=== PATIENT | female | born 1965 | race Caucasian/White ===

== ENCOUNTER → 2016-08-30 | Outpatient (CLI) | payer BC ==
--- NOTE | 2016-08-31 07:43 | MR ---
MRI of the brain with and without contrast HISTORY: Headaches. TECHNIQUE: T1-weighted sagittal, T2, FLAIR, and diffusion axial, postcontrast T1 axial and coronal vi ews of the brain are submitted. CONTRAST: 15 mL of MultiHance FINDINGS: There is no evidence of acute ischemia. The ventricles, basal cisterns, and sulci overlying the co nvexities are consistent with the patient's age. There is no mass effect or enhancing mass. Craniocervical junction maintained. Pituitary gland somewhat prominent in size. No evidence of cerebe llopontine angle mass. Changes of chronic mild sinusitis noted. WHITE MATTER: Within the right frontal white matter there is an area of mixed signal measuring 1.3 x 1.1 cm contain ing low and high signal suggestive of a cavernous angioma. A vascular more malformation is felt to b e the most likely etiology differential diagnosis also including a remote hemorrhage or neoplasm. No enhancement. Report called to the patient's referring clinician. IMPRESSION: 1. Within the right frontal white matter there is an area of mixed signal containing low and high sig nal suggestive of a cavernous angioma. A vascular malformation is felt to be the most likely etiolog y with the differential diagnosis also including a remote hemorrhage or neoplasm.
== END ==
LOC: RADMRIMAIN 20:03
PROVIDERS: ATTEND Physician Assistant Medical
DX: R51 Headache (principal); G43.009 Migraine without aura, not intractable, without status migrainosus
CPT/HCPCS: 70553; A9577

== ENCOUNTER 2016-09-15 14:19 | Emergency (ER) | payer BC ==
[2016-09-15] MEDS ORDERED: SODIUM CHLORIDE 0.9% 1,000 ML IV STA (14:57)
[2016-09-15] MEDS ORDERED: SODIUM CHLORIDE 0.9% 500 ML IV STA (14:57)
[2016-09-15] MEDS ORDERED: LORazepam 1 MG TAB PO STA (14:58)
[2016-09-15 15:17] LABS: Basophils # (A) 0.1 k/uL (0-0.2); Basophils % (A) 1 %; CH 27.5; CHCM 32.2; Eosinophils # (A) 0.1 k/uL (0-0.7); Eosinophils % (A) 2 %; HCT 39.1 % (34.0-46.0); HDW 2.69; HGB 12.2 gm/dL (11.4-16.0); Hypochromasia Slight; Luc # (Auto) 0.15; Luc % (Auto) 3; Lymphocytes % (A) 18 %; MCH 26.7 pg (25.0-35.0); MCHC 31.3 g/dL (31.0-37.0); MCV 85.5 fL (80.0-100.0); Monocytes # (A) 0.3 k/uL (0-1.0); Monocytes % (A) 5 %; Neutrophils # (A) 3.9 k/uL (1.3-7.7); Neutrophils % (A) 72 %; RBC 4.57 m/uL (3.80-5.40); RDW 13.8 % (11.5-15.5); WBC 5.5 k/uL (3.8-10.6); WBC (Perox) 5.79
[2016-09-15 15:19] LABS: ALT 21 U/L (9-52); AST 27 U/L (14-36); Alkaline Phosphatase 89 U/L (38-126); Anion Gap 14 mmol/L; Blood Urea Nitrogen 20 mg/dL (7-17); Calcium 9.8 mg/dL (8.4-10.2); Carbon Dioxide 25 mmol/L (22-30); Chloride 101 mmol/L (98-107); Glucose 91 mg/dL (74-99); Magnesium 1.9 mg/dL (1.6-2.3); Non-African American GFR(MDRD) >60 (>60 ml/min/1.73 sqM); Sodium 140 mmol/L (137-145); Total Bilirubin 0.4 mg/dL (0.2-1.3); Total Protein 7.9 g/dL (6.3-8.2)
[2016-09-15 15:22] LABS: Partial Thromboplastin Time 25.7 sec (22.0-30.0); Prothrombin Time 10.4 sec (9.0-12.0)
[2016-09-15 15:30] LABS: Creatine Kinase 61 U/L (30-135)
--- NOTE | 2016-09-15 15:37 | XR ---
EXAMINATION TYPE: XR chest 2V DATE OF EXAM: 09/15/2016 3:31 PM COMPARISON: NONE INDICATION: Dysrhythmia shortness of breath TECHNIQUE: 2 view chest FINDINGS: The heart size is normal. The pulmonary vasculature is normal. The lungs are clear. IMPRESSION: 1. No acute pulmonary process.
[2016-09-15 15:42] LABS: Creatine Kinase MB 0.3 ng/mL (0.0-2.4); Troponin I <0.012 ng/mL (0.000-0.034)
[2016-09-15 15:56] VITALS: RESP 18
--- NOTE | 2016-09-15 16:59 | ED ---
Arrhythmia/Palpitations HPI - General Chief Complaint: Arrhythmia/Palpitations Stated Complaint: Dizzy, Palpitations Time Seen by Provider: 09/15/16 14:40 Source: patient, family Mode of arrival: wheelchair Limitations: no limitations - History of Present Illness Initial Comments: She presented with palpitations and that she fell she didn't pass out she felt very thirsty this started all about 2 hours ago it comes in waves she denies any chest pain feels like there is something in her epigastric area she has no history of heart disease no history of ischemic heart disease no stents in place no CABG. Denies any headache neck stiffness no fever no chills she is not been coughing no phlegm no abdominal pain no frequency urgency dysuria no signs of TIA or CVA - Related Data Home Medications Medication Instructions Recorded Confirmed Calcium Carbonate [Calcium] 600 mg PO DAILY 09/15/16 09/15/16 Cetirizine HCl [Zyrtec] 10 mg PO DAILY 09/15/16 09/15/16 Ibuprofen [Motrin] 400 mg PO ONCE PRN 09/15/16 09/15/16 Levothyroxine Sodium [Synthroid] 88 mcg PO DAILY 09/15/16 09/15/16 Magnesium 200 mg PO DAILY 09/15/16 09/15/16 Meloxicam [Mobic] 7.5 mg PO DAILY 09/15/16 09/15/16 SUMAtriptan SUCCINATE [Imitrex] 50 mg PO Q6H PRN 09/15/16 09/15/16 Zinc 50 mg PO DAILY 09/15/16 09/15/16 Allergies Allergy/AdvReac Type Severity Reaction Status Date / Time No Known Allergies Allergy Verified 09/15/16 15:29 Review of Systems ROS Statement: Those systems with pertinent positive or pertinent negative responses have been documented in the HPI. ROS Other: All systems not noted in ROS Statement are negative. Past Medical History Past Medical History: Thyroid Disorder Additional Past Medical History / Comment(s): migraines History of Any Multi-Drug Resistant Organisms: None Reported Past Psychological History: No Psychological Hx Reported Smoking Status: Former smoker Past Alcohol Use History: None Reported Past Drug Use History: None Reported General Exam Limitations: no limitations Course Vital Signs 09/15/16 09/15/16 09/15/16 14:23 15:02 17:20 Temperature 97 F L Pulse Rate 99 83 Pulse Rate [ 83 Sitting] Pulse Rate [ 97 Standing] Pulse Rate [ 86 Supine] Respiratory 20 18 Rate Blood Pressure 134/77 125/73 Blood Pressure 129/77 [Sitting] Blood Pressure 130/82 [Standing] Blood Pressure 128/80 [Supine] O2 Sat by Pulse 100 98 Oximetry EKG, mild, CBC, INR, troponin, compressive metabolic panel, chest x-ray does are all reviewed all within normal range including TSH didn't see no abnormalities, patient was encouraged to save for 24 hours so we could do the serial cardiac markers also I wanted to do a head CT she told me that she had MRI done a few days ago and a she said she do not want a head CT and she thinks THE symptoms in terms are from mom eating of food which contained marijuana now , explained her that there is someone good possibility with the same time and will be any best interest to monitor the heart in brain with a CAT scan and neck with cardiac monitoring over the next 24 hours with the forensic dna analyst consult but patient decided he said she agreed to sign AMA form and promises she will come back if symptoms get worse EKG Findings - EKG Comments: EKG Findings:: EKG is normal sinus rhythm ventricular rate is 80 [place] interval is 126 QRS duration is 92 QT/QTc is 350/43 is a T-wave inversion in lead [address] elevation or ST depression noticed in other leads Medical Decision Making - Lab Data Result diagrams: 09/15/16 14:55 09/15/16 14:55 Lab Results 09/15/16 09/15/16 09/15/16 Range/Units 14:55 14:55 14:55 WBC 5.5 (3.8-10.6) k/uL RBC 4.57 (3.80-5.40) m/uL Hgb 12.2 (11.4-16.0) gm/dL Hct 39.1 (34.0-46.0) % MCV 85.5 (80.0-100.0) fL MCH 26.7 (25.0-35.0) pg MCHC 31.3 (31.0-37.0) g/dL RDW 13.8 (11.5-15.5) % Plt Count 306 (150-450) k/uL Neutrophils % 72 % Lymphocytes % 18 % Monocytes % 5 % Eosinophils % 2 % Basophils % 1 % Neutrophils # 3.9 (1.3-7.7) k/uL Lymphocytes # 1.0 (1.0-4.8) k/uL Monocytes # 0.3 (0-1.0) k/uL Eosinophils # 0.1 (0-0.7) k/uL Basophils # 0.1 (0-0.2) k/uL Hypochromasia Slight PT (9.0-12.0) sec INR (<1.1) APTT (22.0-30.0) sec Sodium 140 (137-145) mmol/L Potassium 4.0 (3.5-5.1) mmol/L Chloride 101 (98-107) mmol/L Carbon Dioxide 25 (22-30) mmol/L Anion Gap 14 mmol/L BUN 20 H (7-17) mg/dL Creatinine 0.72 (0.52-1.04) mg/dL Est GFR (MDRD) Af Amer >60 (>60 ml/min/1.73 sqM) Est GFR (MDRD) Non-Af >60 (>60 ml/min/1.73 sqM) Glucose 91 (74-99) mg/dL Calcium 9.8 (8.4-10.2) mg/dL Magnesium 1.9 (1.6-2.3) mg/dL Total Bilirubin 0.4 (0.2-1.3) mg/dL AST 27 (14-36) U/L ALT 21 (9-52) U/L Alkaline Phosphatase 89 (38-126) U/L Total Creatine Kinase 61 (30-135) U/L CK-MB (CK-2) 0.3 (0.0-2.4) ng/mL CK-MB (CK-2) Rel Index 0.5 Troponin I <0.012 (0.000-0.034) ng/mL Total Protein 7.9 (6.3-8.2) g/dL Albumin 4.6 (3.5-5.0) g/dL TSH 3.090 (0.465-4.680) mIU/L Urine Opiates Screen (NotDetected) Ur Oxycodone Screen (NotDetected) Urine Methadone Screen (NotDetected) Ur Propoxyphene Screen (NotDetected) Ur Barbiturates Screen (NotDetected) U Tricyclic Antidepress (NotDetected) Ur Phencyclidine Scrn (NotDetected) Ur Amphetamines Screen (NotDetected) U Methamphetamines Scrn (NotDetected) U Benzodiazepines Scrn (NotDetected) Urine Cocaine Screen (NotDetected) U Marijuana (THC) Screen (NotDetected) 09/15/16 09/15/16 Range/Units 14:55 14:55 WBC (3.8-10.6) k/uL RBC (3.80-5.40) m/uL Hgb (11.4-16.0) gm/dL Hct (34.0-46.0) % MCV (80.0-100.0) fL MCH (25.0-35.0) pg MCHC (31.0-37.0) g/dL RDW (11.5-15.5) % Plt Count (150-450) k/uL Neutrophils % % Lymphocytes % % Monocytes % % Eosinophils % % Basophils % % Neutrophils # (1.3-7.7) k/uL Lymphocytes # (1.0-4.8) k/uL Monocytes # (0-1.0) k/uL Eosinophils # (0-0.7) k/uL Basophils # (0-0.2) k/uL Hypochromasia PT 10.4 (9.0-12.0) sec INR 1.0 (<1.1) APTT 25.7 (22.0-30.0) sec Sodium (137-145) mmol/L Potassium (3.5-5.1) mmol/L Chloride (98-107) mmol/L Carbon Dioxide (22-30) mmol/L Anion Gap mmol/L BUN (7-17) mg/dL Creatinine (0.52-1.04) mg/dL Est GFR (MDRD) Af Amer (>60 ml/min/1.73 sqM) Est GFR (MDRD) Non-Af (>60 ml/min/1.73 sqM) Glucose (74-99) mg/dL Calcium (8.4-10.2) mg/dL Magnesium (1.6-2.3) mg/dL Total Bilirubin (0.2-1.3) mg/dL AST (14-36) U/L ALT (9-52) U/L Alkaline Phosphatase (38-126) U/L Total Creatine Kinase (30-135) U/L CK-MB (CK-2) (0.0-2.4) ng/mL CK-MB (CK-2) Rel Index Troponin I (0.000-0.034) ng/mL Total Protein (6.3-8.2) g/dL Albumin (3.5-5.0) g/dL TSH (0.465-4.680) mIU/L Urine Opiates Screen Not Detected (NotDetected) Ur Oxycodone Screen Not Detected (NotDetected) Urine Methadone Screen Not Detected (NotDetected) Ur Propoxyphene Screen Not Detected (NotDetected) Ur Barbiturates Screen Not Detected (NotDetected) U Tricyclic Antidepress Not Detected (NotDetected) Ur Phencyclidine Scrn Not Detected (NotDetected) Ur Amphetamines Screen Not Detected (NotDetected) U Methamphetamines Scrn Not Detected (NotDetected) U Benzodiazepines Scrn Not Detected (NotDetected) Urine Cocaine Screen Not Detected (NotDetected) U Marijuana (THC) Screen Detected H (NotDetected) Disposition Clinical Impression: Palpitation Disposition: Left Against Medical Advice Condition: Good Instructions: Palpitations (ED) Referrals: Josee Lima III, MD [Primary Care Provider] - 1-2 days
[2016-09-15 17:55] VITALS: BP 126/75; PULSE 90; TEMP 98.3
== END 2016-09-15 18:00 | disposition left against medical advice (07) ==
LOC: EC 14:19
DX: R00.2 Palpitations (principal); R63.1 Polydipsia; E07.9 Disorder of thyroid, unspecified; Z87.891 Personal history of nicotine dependence; Z79.1 Long term (current) use of non-steroidal anti-inflammatories (NSAID); Z79.899 Other long term (current) drug therapy; Z86.69 Personal history of other diseases of the nervous system and sense organs; W19.XXXA Unspecified fall, initial encounter
CPT/HCPCS: 36415; 71020; 80053; 80306; 82550; 82553; 83735; 84443; 84484; 85025; 85610; 85730; 93005; 96360; 96361; 99285

== ENCOUNTER → 2018-05-22 | Outpatient (CLI) | payer BC ==
--- NOTE | 2018-05-23 07:23 | USB ---
Reason for exam: additional evaluation requested from prior study. History: Family history of breast cancer. Benign ultrasound-guided core biopsy of the left breast, September 11, 2000. Core biopsy of the left breast. Physical Findings: Nurse did not find any significant physical abnormalities on exam. US Breast RT Right complete breast ultrasound includes all four quadrants, the retroareolar region and axilla. Finding demonstrates a 0.3 x 0.3 x 0.4cm round, cystic lesion at 10 o'clock and a 0.5 x 0.4 x 0.4cm oval, cystic lesion at 12 o'clock. These results were verbally communicated with the patient and result sheet given to the patient on 05/22/18. ASSESSMENT: Probably benign, BI-RAD 3 RECOMMENDATION: Follow-up diagnostic mammogram and ultrasound of the right breast in 6 months.
== END | disposition home or self-care (01) ==
LOC: RADUSWWP 15:38
PROVIDERS: ATTEND Obstetrics & Gynecology
DX: R92.8 Other abnormal and inconclusive findings on diagnostic imaging of breast (principal)

== ENCOUNTER → 2018-09-10 | Outpatient (CLI) | payer SELFPAY ==
--- NOTE | 2018-09-11 07:33 | US ---
EXAMINATION TYPE: US thyroid st tissue head/neck DATE OF EXAM: 09/10/2018 COMPARISON: NONE CLINICAL HISTORY: E03.9 Hypothyroidism, unspecified. Pt states rash/ skin discoloration on neck, also difficulty swallowing GLAND SIZE: Right Lobe: 5.3 x 2.4 x 1.4 cm Overall Parenchyma: heterogenous Left Lobe: 5.0 x 1.5 x 1.4 cm Overall Parenchyma: heterogeneous Isthmus Thickness: 0.6 cm No discrete thyroid nodules. Bilateral neck scanned, no evidence of lymphadenopathy. Bilateral thyroid enlarged, grossly heterogen eous with hypervascularity. IMPRESSION: Thyroid is enlarged bilaterally. Appears to be heterogeneous and hypervascular correlate for thyroidi tis. No definite discrete thyroid nodules identified.
== END | disposition home or self-care (01) ==
LOC: RADUSWWP 16:43
PROVIDERS: ATTEND Family Medicine
DX: E04.1 Nontoxic single thyroid nodule (principal); E03.9 Hypothyroidism, unspecified; R21 Rash and other nonspecific skin eruption
CPT/HCPCS: 76536

== ENCOUNTER → 2018-12-31 | Outpatient (CLI) | payer BC ==
--- NOTE | 2019-01-01 10:58 | MM ---
Reason for exam: follow-up at short interval from prior study. Last mammogram was performed 15 years and 7 months ago. History: Family history of breast cancer in paternal grandmother at age 80. Benign ultrasound-guided core biopsy of the left breast, September 11, 2000. Core biopsy of the left breast. Physical Findings: Nurse did not find any significant physical abnormalities on exam. MG 3D Diag Mammo W/Cad RT CC, MLO, and LM view(s) were taken of the right breast. Prior study comparison: May 22, 2018, right breast US breast RT. The breast tissue is heterogeneously dense. This may lower the sensitivity of mammography. There is no discrete abnormality including area of concern. No significant new findings when compared with previous films. These results were verbally communicated with the patient and result sheet given to the patient on 12/31/18. ASSESSMENT: Incomplete: need additional imaging evaluation, BI-RAD 0 RECOMMENDATION: Ultrasound of the right breast.
--- NOTE | 2019-01-01 10:59 | USB ---
Reason for exam: additional evaluation requested from abnormal screening. History: Family history of breast cancer in paternal grandmother at age 80. Benign ultrasound-guided core biopsy of the left breast, September 11, 2000. Core biopsy of the left breast. US Breast Limited RT Right limited breast ultrasound including focal area of concern, retroareolar and axilla demonstrates no cystic or solid lesion seen. These results were verbally communicated with the patient and result sheet given to the patient on 12/31/18. ASSESSMENT: Negative, BI-RAD 1 RECOMMENDATION: Routine screening mammogram of both breasts in 6 months. Back on schedule.
== END | disposition home or self-care (01) ==
LOC: RADMAMWWP 08:22
PROVIDERS: ATTEND Obstetrics & Gynecology
DX: R92.8 Other abnormal and inconclusive findings on diagnostic imaging of breast (principal)
CPT/HCPCS: 77061; 77065

== ENCOUNTER → 2019-12-17 | Outpatient (CLI) | payer BC ==
--- NOTE | 2019-12-18 07:35 | BD ---
EXAMINATION TYPE: Axial Bone Density DATE OF EXAM: 12/17/2019 COMPARISON: NONE CLINICAL HISTORY: Postmenopausal symptoms Height: 63 IN Weight: 151 LBS RISK FACTORS HISTORY OF: Active: YES Diet low in dairy products/other sources of calcium: YES If Premenopausal, do you have irregular periods: YES MEDICATIONS: Thyroid Medications: YES Which medication: Synthroid How Lon+ YEARS Additional Medications: CALCIUM, SYNTHROID, MIGRAINE MEDS, EXAM MEASUREMENTS: Bone mineral densitometry was performed using the [employer] System. Bone mineral density as measured about the Lumbar spine is: ----- L1-L4(G/cm2): 1.364 T Score Values are as follows: ----- L2: 1.5 ----- L3: 1.4 ----- L4: 1.9 ----- L1-L4: 1.5 Bone mineral density BASELINE Bone mineral density about the R hip (g/cm2): 1.088 Bone mineral density about the L hip (g/cm2): 1.073 T Score values are as follows: -----R Neck: 0.4 -----L Neck: 0.3 -----R Total: 1.6 -----L Total: 1.5 Bone mineral density BASELINE IMPRESSION: Normal (Values between +1 and -1 indicate normal bone mass). Consider repeating this study in 5 year s or sooner if there is some new clinical indication. NOTE: T-SCORE=SD OF THE YOUNG ADULT MEAN.
--- NOTE | 2019-12-18 13:28 | MM ---
Reason for exam: screening (asymptomatic). Last mammogram was performed 1 year ago. History: Family history of breast cancer in paternal grandmother at age 80. Benign ultrasound-guided core biopsy of the left breast, September 11, 2000. Core biopsy of the left breast. Physical Findings: A clinical breast exam by your physician is recommended on an annual basis and results should be correlated with mammographic findings. MG 3D Screening Mammo W/Cad Bilateral CC and MLO view(s) were taken. Prior study comparison: December 31, 2018, right breast MG 3d diag mammo w/cad RT. May 28, 2003, bilateral screening mammogram. The breast tissue is heterogeneously dense. This may lower the sensitivity of mammography. No significant changes when compared with prior studies. ASSESSMENT: Benign, BI-RAD 2 RECOMMENDATION: Routine screening mammogram of both breasts in 1 year.
== END | disposition home or self-care (01) ==
LOC: RADMAMWWP 16:00
PROVIDERS: ATTEND Obstetrics & Gynecology
DX: Z12.31 Encounter for screening mammogram for malignant neoplasm of breast (principal); N95.1 Menopausal and female climacteric states
CPT/HCPCS: 77063; 77067; 77080

== ENCOUNTER → 2020-12-11 | Outpatient (CLI) | payer BC ==
--- NOTE | 2020-12-11 12:00 | MM ---
Reason for exam: additional evaluation requested from prior study. Last mammogram was performed 1 year ago. History: Patient is postmenopausal. Family history of breast cancer in paternal grandmother at age 80. Benign ultrasound-guided core biopsy of the left breast, September 11, 2000. Core biopsy of the left breast. Physical Findings: Nurse did not find any significant physical abnormalities on exam. MG 3D Diag Mammo W/Cad NELDA Bilateral CC and MLO view(s) were taken. Prior study comparison: December 17, 2019, bilateral MG 3d screening mammo w/cad. December 31, 2018, right breast MG 3d diag mammo w/cad RT. The breast tissue is heterogeneously dense. This may lower the sensitivity of mammography. There is no discrete abnormality including area of concern. No significant new findings when compared with previous films. These results were verbally communicated with the patient and result sheet given to the patient on 12/11/20. ASSESSMENT: Benign, BI-RAD 2 RECOMMENDATION: Routine screening mammogram of both breasts in 1 year. Manage patient on a clinical basis.
== END | disposition home or self-care (01) ==
LOC: RADMAMWWP 09:40
PROVIDERS: ATTEND Obstetrics & Gynecology
DX: N64.4 Mastodynia (principal)
CPT/HCPCS: 77062; 77066

== ENCOUNTER → 2021-05-14 | Outpatient (CLI) | payer BC ==
[2021-05-14 15:19] VITALS: BP 122/77; PULSE 70; RESP 16; TEMP 98.6
--- NOTE | 2021-05-14 15:48 | P.GSHP ---
History of Present Illness H&P Date: 05/14/21 Chief Complaint: breast pain Oksana is a 56 year old white female seen in consultation for Dr. Iverson regarding breast pain. Her last bilateral mammogram was 12-11-20 which was benign BIRAD 2. She states the pain started under her left arm in November 2020. she subsequently underwent a bilateral mammogram in December 2020. Following the mammogram the pain was exacerbated however it had been present prior to the study. The pain is described as at times burning, at times pinching, and at times not they are. She does not know of anything that causes the pain. It does not spread anyplace. She does not feel any lumps, masses or nodules. She does not have any nipple discharge. She has not had any recent trauma or infection in her breast. She did have a left breast needle biopsy in 2000 which was benign. Otherwise she's not had any procedures done on either breast. She works on a [employer] which has long hours, and some heavy lifting. Caffeine: 3 cup/day nicotine: none chocolate: occasional Family History: paternal grandmother: breast cancer paternal aunt: breast cancer maternal grandmother: colon cancer Hormonal History: menarche: 16 age at first : 26, did not breast feed menopause: 54 BCP: 3 years many years ago hormones: none Surgical history: 2 Hernia surgery umbilical Cholecystectomy medical history: Negative Social history: Nicotine: Negative Alcohol: Negative Drugs: none - Constitutional Constitutional: Denies chills, Denies fever - EENT Eyes: denies blurred vision, denies pain Ears: deny: decreased hearing, tinnitus Ears, nose, mouth and throat: Reports headache - Breasts Breasts: bilateral: as per HPI - Cardiovascular Cardiovascular: Denies chest pain, Denies shortness of breath - Respiratory Respiratory: Reports cough - Gastrointestinal Gastrointestinal: Reports constipation, Denies abdominal pain, Denies diarrhea, Denies nausea, Denies vomiting - Genitourinary (Female) Genitourinary: Denies dysuria, Denies hematuria - Menstruation Menstruation: Reports postmenopausal - Musculoskeletal Musculoskeletal: Reports myalgias - Integumentary Integumentary: Denies pruritus, Denies rash - Neurological Neurological: Denies numbness, Denies weakness - Psychiatric Psychiatric: Denies anxiety, Denies depression - Endocrine Comment: 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 Past Anesthesia/Blood Transfusion Reactions: No Reported Reaction Past Psychological History: No Psychological Hx Reported Smoking Status: Never smoker Past Alcohol Use History: None Reported Past Drug Use History: None Reported Medications and Allergies Home Medications Medication Instructions Recorded Confirmed Type Levothyroxine Sodium [Synthroid] 88 mcg PO DAILY 05/14/21 05/14/21 History SUMAtriptan succinate [Imitrex] 50 mg PO BID PRN 05/14/21 05/14/21 History Allergies Allergy/AdvReac Type Severity Reaction Status Date / Time Sulfa (Sulfonamide Allergy Swelling Verified 05/14/21 15:09 Antibiotics) Surgical - Exam Vital Signs Temp Pulse Resp BP 98.6 F 70 16 122/77 05/14/21 15:11 05/14/21 15:11 05/14/21 15:11 05/14/21 15:11 BMI 26.9 - General well developed, well nourished, no distress - Eyes normal ocular movement - ENT no hearing loss, no congestion - Neck trachea midline - Respiratory normal respiratory effort, clear to auscultation - Cardiovascular Rhythm: regular Heart Sounds: normal: S1, S2 - Abdomen Abdomen: soft - Integumentary normal turgor - Neurologic no disoriented, no combative - Musculoskeletal normal gait - Psychiatric oriented to time, oriented to person, oriented to place, speech is normal, memory intact Breast Exam: Bra: 36B Inspection: bilateral grade 2 ptosis palpation: Right Breasts: Dense breast multiple positional exam fibrocystic changes no dominant masses or nodules of concern Right axilla: No adenopathy of concern Left breast slightly larger than right breast multiple positional exam fibrocystic changes no dominant masses or nodules of concern, dense breast Left axilla: No adenopathy of concern Results mammogram results reviewed from [id number] Assessment and Plan Assessment: Impression: 1. Mastodynia 2. Fibrocystic breast changes 3. Mammogram from 72-21 benign BIRADS 2 Plan: 1. nothing of concern which would warrant an interventional biopsy at this time 2. Close surveillance with repeat bilateral mammogram in December 2021 and physician exam at that time/ follow up here in 6 months 3. Patient is going to modify lifestyle by decreasing caffeine intake 4. [place] oil Cc: Dr. Iverson
== END ==
LOC: WWCWWP 15:01
PROVIDERS: ATTEND Surgery
DX: N60.12 Diffuse cystic mastopathy of left breast (principal); Z88.2 Allergy status to sulfonamides; Z87.891 Personal history of nicotine dependence

== ENCOUNTER → 2022-04-21 | Outpatient (CLI) | payer BC ==
--- NOTE | 2022-04-22 07:44 | MM ---
Reason for Exam: Screening (asymptomatic). Last mammogram was performed 1 year(s) and 4 month(s) ago. Patient History: Menarche at age 16. First Full-Term at age 26. Postmenopausal. Core Biopsy on the Left side. 09/11/2000, Benign Ultrasound-Guided Core Biopsy on the left side. Paternal grandmother had breast cancer, age 80. Paternal aunt had breast cancer. Risk Values: Thelma 5 year model risk: 1.9%. NCI Lifetime model risk: 12.0%. Prior Study Comparison: 12/31/2018 Right Diagnostic Mammogram, [facility]. 12/17/2019 Bilateral Screening Mammogram, [facility]. 12/11/2020 Bilateral Diagnostic Mammogram, [facility]. Tissue Density: The breast tissue is heterogeneously dense. This may lower the sensitivity of mammography. Findings: Analyzed By CAD. There is no suspicious group of microcalcifications or new suspicious mass in either breast. Stable mass less breast which may reflect a cyst. Overall Assessment: Benign, BI-RAD 2 Management: Screening Mammogram of both breasts in 1 year. A clinical breast exam by your physician is recommended on an annual basis and results should be correlated with mammographic findings. Electronically signed and approved by: Ming Ortega M.D. Radiologis
== END | disposition home or self-care (01) ==
LOC: RADMAMWWP 15:59
PROVIDERS: ATTEND Obstetrics & Gynecology
DX: Z12.31 Encounter for screening mammogram for malignant neoplasm of breast (principal); Z78.0 Asymptomatic menopausal state; Z80.3 Family history of malignant neoplasm of breast
CPT/HCPCS: 77063; 77067

== ENCOUNTER 2023-01-13 09:11 | Day surgery (SDC) | payer BC ==
[2023-01-09 15:49] VITALS: BMI 26.5
[~2023-01-13 09:11] MED LIST: ACETAMINOPHEN TAB 500 MG TAB PO PRN; DEXAMETHASONE SOD PHOSPHATE 4 MG/ML 1 ML VIAL IV ONE; HEPARIN SODIUM,PORCINE/PF 5,000 UNIT/0.5 ML SYRINGE SQ PRN; HYDROmorphone 0.5 MG/0.5 ML SYRINGE IVP PRN; LACTATED RINGERS 1,000 ML IV SCH; LIDOCAINE 1% (10MG/ML) FOR IV START INTRADERMA PRN; ONDANSETRON 4 MG/2 ML VIAL IVP ONE
[2023-01-13 09:43] VITALS: RESP 16
[2023-01-13] MEDS ORDERED: KETOROLAC 15 MG/ML 1 ML VIAL ONE (10:43)
[2023-01-13] MEDS ORDERED: MIDAZOLAM 2 MG/2 ML VIAL ONE (10:43)
[2023-01-13] MEDS ORDERED: ROCURONIUM 10 MG/ML (5 ML VIAL) IV ONE (10:43)
[2023-01-13] MEDS ORDERED: PROPOFOL 10 MG/ML 20 ML VIAL IV ONE (10:43)
[2023-01-13] MEDS ORDERED: fentaNYL (PF) 50 MCG/ML 2 ML AMP ONE (10:43)
[2023-01-13] MEDS ORDERED: BUPIVACAINE (PF) 0.25% 30 ML VIAL SQ ONE (10:59)
[2023-01-13] MEDS ORDERED: LACTATED RINGERS 1,000 ML IV ONE (11:47)
[2023-01-13 12:23] VITALS: TEMP 98.2
--- NOTE | 2023-01-13 12:26 | P.OP ---
Date of Procedure: 01/13/23 Procedure(s) Performed: PREOPERATIVE DIAGNOSIS: Recurrent ventral hernia POSTOPERATIVE DIAGNOSIS: Same PROCEDURE: Open repair recurrent ventral hernia with mesh SURGEON: Dr. Veras ANESTHESIA: General OPERATIVE PROCEDURE DETAILS: Patient placed on the operating table in the supine position. Abdomen was prepped and draped in usual sterile fashion. A vertical incision was then made superior to the umbilicus. Dissection through the subcutaneous tissues took place using electrocautery. The patient had a total of 2 fascial defects identified. One was larger measuring about 2.5 cm. The other was smaller measuring about 1 cm. These were oriented [id number]. The fascial bridge between the 2 was divided. We now had a 4.5 cm fascial defect. This was oval in shape and oriented horizontally. A 6.4 cm ventral ex mesh was placed beneath the fascia and sutured to the fascia using trans-fascial 0 Ethibond sutures. Following that the fascia was reapproximated horizontally using interrupted 0 Ethibond mattress sutures. The subcutaneous tissues were closed using 3-0 Vicryl sutures. The skin was closed using a running 4-0 Monocryl suture. Skin glue and sterile dressings were applied. HERNIA CHARACTERISTICS: Length: 4.5 cm Width: 2 cm Type: Recurrent ventral TYPE OF MESH USED: Ventral ex 6.4 cm LOCATION OF MESH: Sub-lay FIXATION: 0 Ethibond PREOPERATIVE DISCUSSION ON SMOKING CESSASTION: Yes PREOPERATIVE DISCUSSION ON MORBID OBESITY: Yes PREOPERATIVE DISCUSSION ON APPROPRIATE USE OF NARCOTIC USE: Yes PREOPERATIVE EDUCATION: Multi Modal, Smoking Cessation and Weight Loss with BMI over 35. DISPOSITION: Stable to recovery room
[2023-01-13] MEDS ORDERED: ACETAMINOPHEN TAB 325 MG TAB PO SCH (14:00)
[2023-01-13 14:23] VITALS: BP 115/72; PULSE 73
[2023-01-13] MEDS ORDERED: IBUPROFEN 600 MG TAB PO SCH (15:30)
== END 2023-01-13 15:15 | disposition home or self-care (01) ==
LOC: OR 09:11
PROVIDERS: ATTEND Surgery
DX: K43.2 Incisional hernia without obstruction or gangrene (principal); F17.200 Nicotine dependence, unspecified, uncomplicated; E07.9 Disorder of thyroid, unspecified; Z88.2 Allergy status to sulfonamides
CPT/HCPCS: 49591; C1781; J2250; J1100; J0690; J2405; J3010; J1885; J2704; J1170; J1644; J0665

== ENCOUNTER 2023-03-09 09:33 | Observation (INO) | payer BC ==
[2023-03-09] MEDS ORDERED: ASPIRIN 81 MG PO STA (09:38)
--- NOTE | 2023-03-09 10:09 | ED ---
Chest Pain HPI - General Chief Complaint: Chest Pain Stated Complaint: Chest pressure Time Seen by Provider: 03/09/23 09:38 Source: patient, RN notes reviewed Mode of arrival: ambulatory Limitations: no limitations - History of Present Illness Initial Comments: 57-year-old female presents emergency Department with chief complaint of chest pain. Patient states she's been having some issues for over a month but states that she developed new symptoms in which she has left arm pain, shoulder pain and numbness to her left arm. Patient states that she saw her primary care physician and was told it may be GERD was placed on omeprazole 40 mg twice a day she states is made no difference and she's had worsening symptoms. She states prior to that she had ventral hernia repair by Dr. Veras had follow-up and there was no complications. Patient denies any dysuria patient does not have a history of hyperlipidemia hypertension that she knows of. - Related Data Home Medications Medication Instructions Recorded Confirmed Levothyroxine Sodium [Synthroid] 88 mcg PO QAM 05/14/21 01/13/23 SUMAtriptan succinate [Imitrex] 50 mg PO BID PRN 05/14/21 01/13/23 Loratadine [Claritin] 10 mg PO DAILY 01/09/23 01/13/23 Montelukast Sodium 10 mg PO QAM 01/09/23 01/13/23 Papaya [Papaya Chew] 1 tab PO DAILY 01/09/23 01/13/23 Turmeric Root Extract [Turmeric] 500 mg PO DAILY 01/09/23 01/13/23 Previous Rx's Medication Instructions Recorded traMADol HCl [Ultram] 50 mg PO Q6H PRN #6 tab 01/13/23 Allergies Allergy/AdvReac Type Severity Reaction Status Date / Time Sulfa (Sulfonamide Allergy Itching Verified 03/09/23 09:37 Antibiotics) Review of Systems ROS Statement: Those systems with pertinent positive or pertinent negative responses have been documented in the HPI. ROS Other: All systems not noted in ROS Statement are negative. EKG Findings - EKG Comments: EKG Findings:: EKG performed at 9:59 sinus rhythm with a rate of 81. WA 141 QRS 93 QT /QTC 364/401 - EKG Results: EKG: interpreted by NUHA Past Medical History Past Medical History: Thyroid Disorder Additional Past Medical History / Comment(s): ventral hernia, resolving cold symptoms-tested neg for covid-notified Dr Veras's office,migraines,seasonal alg History of Any Multi-Drug Resistant Organisms: None Reported Past Surgical History: Section, Cholecystectomy, Hernia Repair Additional Past Surgical History / Comment(s): benign left breast biopsy september 11, 2000,c sections x2 Past Anesthesia/Blood Transfusion Reactions: No Reported Reaction Past Psychological History: No Psychological Hx Reported Smoking Status: Former smoker - Past Family History Mother Family Medical History: No Reported History General Exam Limitations: no limitations General appearance: alert, in no apparent distress Head exam: Present: atraumatic, normocephalic, normal inspection Eye exam: Present: normal appearance, PERRL, EOMI. Absent: scleral icterus, conjunctival injection, periorbital swelling ENT exam: Present: normal exam, normal oropharynx, mucous membranes moist Neck exam: Present: normal inspection. Absent: tenderness, meningismus, lymphadenopathy Respiratory exam: Present: normal lung sounds bilaterally. Absent: respiratory distress, wheezes, rales, rhonchi, stridor Cardiovascular Exam: Present: regular rate, normal rhythm, normal heart sounds. Absent: systolic murmur, diastolic murmur, rubs, gallop, clicks Course Vital Signs 03/09/23 09:34 Temperature 98.4 F Pulse Rate 105 H Respiratory 18 Rate Blood Pressure 136/77 O2 Sat by Pulse 98 Oximetry Chest Pain MDM - MDM Was pt. sent in by a medical professional or institution (, PA, LOOM OPERATOR APPRENTICE, urgent care, hospital, or assisted...) When possible be specific @ -No Did you speak to anyone other than the patient for history (EMS, parent, family, police, friend...)? What history was obtained from this source @ -No Did you review nursing and triage notes (agree or disagree)? Why? @ -I reviewed and agree with nursing and triage notes Were old charts reviewed (outside hosp., previous admission, EMS record, old EKG, old radiological studies, urgent care reports/EKG's, assisted records)? Report findings @ -No old charts were reviewed Differential Diagnosis (chest pain, altered mental status, abdominal pain women, abdominal pain men, vaginal bleeding, weakness, fever, dyspnea, syncope, headache, dizziness, GI bleed, back pain, seizure, CVA, palpatations, mental health, musculoskeletal)? @ -Differential Chest Pain: Stable Angina, Unstable Angina, STEMI, NSTEMI Aortic Dissection, Pneumothorax, Musculoskeletal, Esophageal Spasm GERD, Cholecystitis, Pancreatitis, Zoster, this is not meant to be an all-inclusive list. e EKG interpreted by me (3pts min.). @ -As above X-rays interpreted by me (1pt min.). @ -Chest x-ray shows no acute process CT interpreted by me (1pt min.). @ -CT chest injury no evidence of PE U/S interpreted by me (1pt. min.). @ -None done] What testing was considered but not performed or refused? (CT, X-rays, U/S, labs)? Why? @ -[None] What meds were considered but not given or refused? Why? @ -[None] Did you discuss the management of the patient with other professionals (professionals i.e. , PA, LOOM OPERATOR APPRENTICE, lab, RT, psych nurse, social media intern, die machine operator, teacher, administrative hearing officer, porter sample case)? Give summary @ -[ sheet for admission secondary to progressive chest pain, chest pain rule out] Was smoking cessation discussed for >3mins.? @ -[No] Was critical care preformed (if so, how long)? @ -[No] Were there social determinants of health that impacted care today? How? (Homelessness, low income, unemployed, alcoholism, drug addiction, transportation, low edu. Level, literacy, decrease access to med. care, care home, re hab)? @ -[No] Was there de-escalation of care discussed even if they declined (Discuss DNR or withdrawal of care, Hospice)? DNR status @ -[No] What co-morbidities impacted this encounter? (DM, HTN, Smoking, COPD, CAD, Cancer, CVA, ARF, Chemo, Hep., AIDS, mental health diagnosis, sleep apnea, morbid obesity)? @ -[Admitted patient had progressive chest pain, chest pressure patiently admitted for critical a negative CT chest x-ray EKG and laboratory studies patient scheduled for stress test patient will have echocardiogram. Was patient admitted / discharged? Hospital course, mention meds given and route, prescriptions, significant lab abnormalities, going to OR and other pertinent info. @ -[hospital course] Undiagnosed new problem with uncertain prognosis? @ -[No] Drug Therapy requiring intensive monitoring for toxicity (Heparin, Nitro, Insulin, Cardizem)? @ -[No] Were any procedures done? @ -[No] Diagnosis/symptom? @ -[Chest pain] Acute, or Chronic, or Acute on Chronic? @ -[Acute] Uncomplicated (without systemic symptoms) or Complicated (systemic symptoms)? @ -[Uncomplicated] Side effects of treatment? @ -[No] Exacerbation, Progression, or Severe Exacerbation? @ -[No] Poses a threat to life or bodily function? How? (Chest pain, [place], [place], pneumonia, PE, COPD, DKA, ARF, appy, cholecystitis, CVA, Diverticulitis, Homicidal, Suic idal, threat to staff... and all critical care pts) @ -[Yes at risk for cardiac arrest] Disposition Clinical Impression: Chest pain Disposition: ADMITTED IP TO THIS HOSP Condition: Fair Referrals: Cammy Veras MD [Primary Care Provider] - 1-2 days Time of Disposition: 13:01
[2023-03-09 10:37] LABS: Basophils % (A) 1 %; Eosinophils # (A) 0.1 k/uL (0-0.7); Eosinophils % (A) 1 %; HCT 42.1 % (34.0-46.0); HGB 13.9 gm/dL (11.4-16.0); Lymphocytes % (A) 18 %; MCH 28.8 pg (25.0-35.0); MCHC 33.1 g/dL (31.0-37.0); MCV 87.1 fL (80.0-100.0); Mean Platelet Volume 8.2; Monocytes # (A) 0.3 k/uL (0-1.0); Monocytes % (A) 5 %; Neutrophils % (A) 73 %; Platelet Count 260 k/uL (150-450); RBC 4.84 m/uL (3.80-5.40); RDW 13.7 % (11.5-15.5); WBC 5.4 k/uL (3.8-10.6)
--- NOTE | 2023-03-09 10:41 | XR ---
EXAMINATION TYPE: XR chest 2V DATE OF EXAM: 03/09/2023 COMPARISON: 09/15/2016 HISTORY: 57-year-old female with chest pain and chest pressure TECHNIQUE: PA and lateral views FINDINGS: The cardiomediastinal silhouette, aorta, and pulmonary vasculature are within normal limits. Lungs an d pleural spaces are clear. IMPRESSION: No acute cardiopulmonary process.
[2023-03-09 10:43] LABS: Partial Thromboplastin Time 26.4 sec (22.0-30.0); Prothrombin Time 10.4 sec (9.0-12.0)
[2023-03-09 10:49] LABS: ALT 20 U/L (4-34); AST 22 U/L (14-36); African American GFR (CKD) >90 (>60 ml/min/1.73 sqM); Albumin 4.2 g/dL (3.5-5.0); Alkaline Phosphatase 86 U/L (38-126); Anion Gap 8 mmol/L; Blood Urea Nitrogen 13 mg/dL (7-17); Calcium 9.4 mg/dL (8.4-10.2); Carbon Dioxide 27 mmol/L (22-30); Chloride 105 mmol/L (98-107); Glucose 111 mg/dL (74-99); Lipase 169 U/L (23-300); Magnesium 1.9 mg/dL (1.6-2.3); Non-African American GFR(CKD) >90 (>60 ml/min/1.73 sqM); Potassium 4.1 mmol/L (3.5-5.1); Sodium 140 mmol/L (137-145); Total Bilirubin 0.5 mg/dL (0.2-1.3); Total Protein 7.1 g/dL (6.3-8.2)
--- NOTE | 2023-03-09 12:26 | CT ---
EXAMINATION TYPE: CT chest angio for PE CT DLP: 278.8 mGycm, Automated exposure control for dose reduction was used. DATE OF EXAM: 03/09/2023 12:04 PM COMPARISON:Chest radiograph from same day. CLINICAL INDICATION:Female, 57 years old with history of pain; SOB, chest pressure TECHNIQUE/CONTRAST: CTA scan of the thorax is performed with IV Contrast, patient injected with 100 mL of Isovue 370, pul monary embolism protocol. MIP images are created and reviewed. FINDINGS: Pulmonary Artery: There is no evidence for a filling defect within the pulmonary vasculature to sugge st acute pulmonary embolism. The pulmonary artery is of normal size. Lungs/Pleura: No evidence of focal consolidation, pleural effusion or pneumothorax. Airway: Large airways are patent. Heart: The heart is mildly enlarged for size. No pericardial effusion. Vasculature: No evidence of aortic aneurysm. Mediastinum: No gross evidence of adenopathy. Musculoskeletal: No acute osseous abnormalities Soft Tissues: Unremarkable. Lower neck: No significant findings. Upper Abdomen: No significant findings. IMPRESSION: No evidence of pulmonary embolism.
[2023-03-09] MEDS ORDERED: NITROGLYCERIN SL TABS 0.4 MG TAB SUBLINGUAL PRN (13:41)
[2023-03-09] MEDS ORDERED: SUMAtriptan succinate 50 MG TAB PO PRN (18:21)
--- NOTE | 2023-03-09 18:21 | P.HPIM ---
History of Present Illness This is a pleasant 57 years old female with past medical history of hypothyroidism Patient presents because of chest pain in the middle of the chest radiating to the left shoulder and left arm is been going on for about one month. She rates her pain about 5-6/10 in severity associated with little dyspnea, mainly when she takes deep breath. She felt a little dizzy as well Her chest pain started as a heartburn and she wants to her primary care doctor who prescribed her omeprazole and advised her if no improvement to come to em ergency room. Her PCP additional [facility] Eyes any GI or urinary symptoms No smoking alcohol or illicit drugs She is mildly tachycardic on admission 105. Rest of vitals are stable. Labs including CBC, INR, BMP, liver enzymes, troponin and lipase were unremarkable D-dimer elevated at 1.2. 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 HEENT: No recent visual problems or hearing problems. Denied any sore throat. CARDIOVASCULAR: No orthopnea, PND, no palpitations, no syncope. PULMONARY: No shortness of breath, no cough, no hemoptysis. GASTROINTESTINAL: No diarrhea, no nausea, no vomiting, no abdominal pain. Normoactive bowel sounds. NEUROLOGICAL: No headaches, no weakness, no numbness. HEMATOLOGICAL: Denies any bleeding or petechiae. GENITOURINARY: Denies any burning micturition, frequency, or urgency. MUSCULOSKELETAL/RHEUMATOLOGICAL: Denies any joint pain, swelling, or any muscle pain. ENDOCRINE: Denies any polyuria or polydipsia. Past Medical History Past Medical History: Thyroid Disorder Additional Past Medical History / Comment(s): ventral hernia, resolving cold symptoms-tested neg for covid-notified Dr Veras's office,migraines,seasonal alg History of Any Multi-Drug Resistant Organisms: None Reported Past Surgical History: Section, Cholecystectomy, Hernia Repair Additional Past Surgical History / Comment(s): benign left breast biopsy september 11, 2000,c sections x2 Past Anesthesia/Blood Transfusion Reactions: No Reported Reaction Past Psychological History: No Psychological Hx Reported Smoking Status: Former smoker - Past Family History Mother Family Medical History: No Reported History Medications and Allergies Home Medications Medication Instructions Recorded Confirmed Type Levothyroxine Sodium [Synthroid] 88 mcg PO QAM 05/14/21 03/09/23 History SUMAtriptan succinate [Imitrex] 50 mg PO BID PRN 05/14/21 03/09/23 History Omeprazole Magnesium [PriLOSEC OTC] 20 mg PO DAILY 03/09/23 03/09/23 History Allergies Allergy/AdvReac Type Severity Reaction Status Date / Time Sulfa (Sulfonamide Allergy lip Verified 03/09/23 14:40 Antibiotics) swelling Physical Exam Vitals: Vital Signs Temp Pulse Resp BP Pulse Ox 03/09/23 09:34 98.4 F 105 H 18 136/77 98 Intake and Output 03/08/23 03/09/23 03/09/23 22:59 06:59 14:59 Other: Weight 68.039 kg GENERAL: The patient is alert and oriented x3, not in any acute distress. Well developed, well nourished. HEENT: Pupils are round and equally reacting to light. EOMI. No scleral icterus. No conjunctival pallor. Normocephalic, atraumatic. No pharyngeal erythema. No thyromegaly. CARDIOVASCULAR: S1 and S2 present. No murmurs, rubs, or gallops. PULMONARY: Chest is clear to auscultation, no wheezing , no crackles. ABDOMEN: Soft, nontender, nondistended, normoactive bowel sounds. No palpable organomegaly. MUSCULOSKELETAL: No joint swelling or deformity. EXTREMITIES: No cyanosis, clubbing, or pedal edema. NEUROLOGICAL: Gross neurological examination did not reveal any focal deficits. SKIN: No rashes. no petechiae. Results CBC & Chem 7: 03/09/23 10:08 03/09/23 10:08 Labs: Abnormal Lab Results - Last 24 Hours (Table) 03/09/23 03/09/23 Range/Units 10:08 10:08 D-Dimer 1.20 H (<0.60) mg/L FEU Glucose 111 H (74-99) mg/dL Assessment and Plan Assessment: Chest pain, rule out cardiac causes Hyperthyroidism Plan: Continue with aspirin Cardiology consult Follow-up echocardiogram Labs and medication were reviewed.. Continue same treatment. Continue with symptomatic treatment. Resume home medication. Monitor labs and vitals. DVT and GI prophylaxis. Further recommendations as per clinical course of the patient DVT prophylaxis: Subcutaneous heparin GI Prophylaxis: Pepcid Prognosis is guarded
[2023-03-10] MEDS ORDERED: LEVOTHYROXINE 88 MCG TAB PO SCH (06:30)
[2023-03-10 08:04] VITALS: RESP 17
[2023-03-10] MEDS ORDERED: ASPIRIN 325 MG TAB PO SCH (09:00)
[2023-03-10] MEDS ORDERED: ASPIRIN 81 MG PO SCH (09:00)
[2023-03-10 09:48] LABS: Chol/HDL Ratio 3.46 Ratio; LDL Cholesterol,Calculated 131.8 mg/dL (0.0-131.0)
--- NOTE | 2023-03-10 11:54 | CA ---
Stress Echo Report Oksana Iglesisa Age: 57 Gender: F : 1965 Exam Date: 03/10/2023 09:30 Exam Location: [facility] Ht (in): 62 Wt (lb): 150 Ordering Physician: Yolanda Branch Referring Physician: [id number] Analytics Developer: Sherri Lange RDCS Technologist Procedure CPT: Indication: CP ICD-9 Codes: Rhythm: Patient History: CHEST PAIN, DIFFICULTY IN BREATHING, PALPITATIONS, FAMILY HX OF HEART DISEASE, FORMER SMOKER Cardiac Medications: Medications in past 24 hours: Contrast: Stress Results Protocol: Deandre Total dose(mL): Exercise Duration (min:sec): 8:[address] Depression (mm): Angina Score: Sharpe Score: METS: 9.5 Resting HR: 98 Resting BP: 130 / 82 Peak HR: 158 Peak BP: 150 / 67 Max Predicted HR: 164 96 % Max Predicted HR Target HR: 139 Double Product: [id number] Stress Summary: BP Response: Reason for Termination: MAX EXERTION/TARGET HR Cardiac Symptoms: LEFT ARM NUMBNESS ECG Analysis Resting ECG: Stress ECG: Arrhythmia: Echo Analysis Resting Echo: Peak Echo Analysis: MEASUREMENTS (Male/Female) Normal Values CONCLUSIONS Baseline EKG revealed normal sinus rhythm with minor nonspecific ST-T changes. Patient walked on a standard Deandre protocol for 8 minutes and achieved a maximum heart rate of 157 bpm which is more than 85% of predicted maximal. She developed fatigue and shortness of breath but did not have angina. EKG revealed minor nonspecific ST-T changes changes and remained inconclusive. There was no arrhythmia no angina. Baseline echo images revealed normal wall motion wall thickening of all segments. At peak exercise there was good augmentation of left ventricular wall motion wall thickening of all segments suggesting that there is no evidence of stress-induced ischemia on this study. Final impression #1 by EKG criteria this is an inconclusive stress test with fair exercise capacity. #[address] Nanci Blackburn MD (Electronically Signed) Final Date: 10 March 2023 11:53
--- NOTE | 2023-03-10 12:13 | CA ---
Transthoracic Echo Report Name: Oksana Iglesias Age: 57 Gender: F : 1965 Exam Date: 03/09/2023 13:58 Exam Location: [place] [facility] Ht (in): 62 Wt (lb): 150 Ordering Physician: Joey Griggs Attending/Referring Phys: [id number] Collar Baster Jumpb[employer] Karen Godinez [facility] Procedure CPT: Indications: Chest Pain Cardiac Hx: Technical Quality: Fair Contrast 1: Total Dose (mL): Contrast 2: Total Dose (mL): MEASUREMENTS (Male / Female) Normal Values 2D ECHO LV Diastolic Diameter PLAX 4.6 cm 4.2 - 5.9 / 3.9 - 5.3 cm LV Systolic Diameter PLAX 3.0 cm IVS Diastolic Thickness 0.8 cm 0.6 - 1.0 / 0.6 - 0.9 cm LVPW Diastolic Thickness 0.9 cm 0.6 - 1.0 / 0.6 - 0.9 cm LV Relative Wall Thickness 0.4 LVOT Diameter 1.9 cm Ascending Aorta Diameter 2.8 cm M-MODE Aortic Root Diameter MM 2.7 cm LA Systolic Diameter MM 3.2 cm LA Ao Ratio MM 1.2 AV Cusp Separation MM 2.2 cm DOPPLER AV Peak Velocity 120.6 cm/s AV Peak Gradient 5.8 mmHg AV Mean Velocity 89.6 cm/s AV Mean Gradient 3.5 mmHg AV Velocity Time Integral 24.4 cm LVOT Peak Velocity 77.8 cm/s LVOT Peak Gradient 2.4 mmHg LVOT Velocity Time Integral 16.6 cm LVOT Stroke Volume 49.4 cm??? LVOT Stroke Volume Index 29.2 ml/m??? LVOT Cardiac Index 1812.8 cm???/min???m??? AV Area Cont Eq vti 2.0 cm??? AV Area Cont Eq pk 1.9 cm??? Mitral E Point Velocity 56.5 cm/s Mitral A Point Velocity 54.5 cm/s Mitral E to A Ratio 1.0 MV Deceleration Time 247.3 ms LV E' Lateral Velocity 9.8 cm/s Mitral E to LV E' Lateral Ratio 5.8 LV E' Septal Velocity 6.3 cm/s Mitral E to LV E' Septal Ratio 8.9 TR Peak Velocity 194.8 cm/s TR Peak Gradient 15.2 mmHg Right Atrial Pressure 3.0 mmHg Pulmonary Artery Systolic Pressu 18.2 mmHg Right Ventricular Systolic Press 18.2 mmHg FINDINGS Left Ventricle Normal Left ventricular size, wall thickness, systolic function with no obvious regional wall motion abnormalities. Left ventricular ejection fraction is estimated at 55-60%. Right Ventricle Normal right ventricular size. Right Atrium Normal right atrial size. Left Atrium Normal left atrial size. Mitral Valve Structurally normal mitral valve. No mitral regurgitation. Aortic Valve Trileaflet aortic valve. No aortic valve stenosis or regurgitation. Tricuspid Valve Structurally normal tricuspid valve. Trace tricuspid regurgitation. Pulmonic Valve Structurally normal pulmonic valve. No pulmonic regurgitation. Pericardium Minimal pericardial effusion (normal variant). Aorta Normal size aortic root and proximal ascending aorta. CONCLUSIONS Normal LV size and systolic function. No significant abnormality in the Doppler exam. No pericardial effusion. No significant pulmonary hypertension Previewed by: Dr. Nanci Blackburn MD (Electronically Signed) Final Date: 10 March 2023 12:12
[2023-03-10 13:46] VITALS: BP 106/70; PULSE 75; TEMP 98.4
[2023-03-10] MEDS ORDERED: ATORVASTATIN 20 MG TAB PO SCH (21:00)
--- NOTE | 2023-03-10 23:38 | CONS ---
CONSULTATION HISTORY OF PRESENT ILLNESS: This is a 57-year-old lady with a history of migraine headaches and hypothyroidism. She takes Synthroid on a regular basis 88 mcg and also Imitrex as needed. She came into the hospital with episode of what seems to be a nondescript chest tightness. It is mostly in the left anterior aspect of her chest and the quality of the pain seems very atypical. It is more of left arm pain and also left shoulder pain. She thought it was gastroesophageal reflux disease. She has tried omeprazole without success through her PCP. Her symptoms do not suggest angina, but she is quite concerned and anxious. She also had a mild elevation of D-dimer of 1.2, underwent a CT angio which did not reveal any evidence of pulmonary embolism. Her troponins are normal. LDL cholesterol is 131, total cholesterol is 221. PAST MEDICAL HISTORY: 1. Hypothyroidism. 2. Probable hyperlipidemia. 3. Migraine headaches. PHYSICAL EXAMINATION: VITAL SIGNS: Blood pressure is 130/70, pulse rate is about 70. HEENT: Unremarkable. Fundus was not examined by me. NECK: Supple. No JVD. I do not hear a carotid bruit. There is no thyromegaly. HEART: Reveals S1, S2 heard normally. No rub, murmur or gallop. LUNGS: Clear. ABDOMEN: Soft, nontender. MUSCULOSKELETAL: Lower extremities reveal normal pulses. No edema. CENTRAL NERVOUS SYSTEM: Normal. DIAGNOSTIC DATA: EKG revealed normal sinus mechanism, right ventricular conduction delay. Nonspecific ST-T changes. IMPRESSION: 1. Atypical chest pain. 2. Hyperlipidemia. 3. Hypothyroidism. 4. Anxiety. RECOMMENDATIONS: I am recommending a stress echo and if this is normal, she can be discharged and we will also place her on a small dose of atorvastatin 20 mg daily and advised to have a fasting lipid profile checked through PCP. The patient can be discharged if stress echo is normal. MMODL / IJN: [id number] /
[2023-03-11] MEDS ORDERED: ASPIRIN 81 MG PO SCH (09:00)
== END 2023-03-10 15:10 | disposition home or self-care (01) ==
LOC: EC 09:33 → 6NMEDSUR 13:59
PROVIDERS: ADMIT Internal Medicine; ATTEND Internal Medicine
DX: R07.89 Other chest pain (principal); E78.5 Hyperlipidemia, unspecified; G43.909 Migraine, unspecified, not intractable, without status migrainosus; E03.9 Hypothyroidism, unspecified; R00.0 Tachycardia, unspecified; R79.89 Other specified abnormal findings of blood chemistry; M25.512 Pain in left shoulder; M79.602 Pain in left arm; R20.0 Anesthesia of skin; R06.00 Dyspnea, unspecified; R42 Dizziness and giddiness; F41.9 Anxiety disorder, unspecified; Z79.890 Hormone replacement therapy; Z79.899 Other long term (current) drug therapy; Z88.2 Allergy status to sulfonamides; Z87.19 Personal history of other diseases of the digestive system; Z87.891 Personal history of nicotine dependence; Z90.49 Acquired absence of other specified parts of digestive tract; Z98.891 History of uterine scar from previous surgery; Z98.890 Other specified postprocedural states
CPT/HCPCS: 99285; 36415; 93005; 93306; 93351; 85379; 80061; 80053; 83690; 83735; 84484; 85025; 85610; 85730; 71046; 71275; G0378 ×2; Q9967

== ENCOUNTER → 2023-06-08 | Outpatient (CLI) | payer BC ==
--- NOTE | 2023-06-09 13:38 | MM ---
Reason for Exam: Screening (asymptomatic). Last mammogram was performed 1 year(s) and 1 month(s) ago. Patient History: Menarche at age 16. First Full-Term at age 26. Postmenopausal. Core Biopsy on the Left side. 09/11/2000, Benign Ultrasound-Guided Core Biopsy on the left side. Paternal grandmother had breast cancer, age 80. Paternal aunt had breast cancer. Risk Values: Thelma 5 year model risk: 2.0%. NCI Lifetime model risk: 11.7%. Prior Study Comparison: 12/17/2019 Bilateral Screening Mammogram, [facility]. 12/11/2020 Bilateral Diagnostic Mammogram, [facility]. 04/21/2022 Bilateral MG 3D screening mammo w/cad, [facility]. Tissue Density: The breast tissue is heterogeneously dense. This may lower the sensitivity of mammography. Findings: Analyzed By CAD. There is no suspicious group of microcalcifications or new suspicious mass. Overall Assessment: Negative, BI-RAD 1 Management: Screening Mammogram of both breasts in [address] [facility] will attempt to contact patient to return for supplemental views and ultrasound if indicated. Patient should continue monthly self-breast exams. A clinical breast exam by your physician is recommended on an annual basis. This exam should not preclude additional follow-up of suspicious palpable abnormalities. Note on Thelma scores and lifetime risk: 1. A Thelma score greater than 3% is considered moderate risk. If this is the case, consider specialist referral to assess eligibility for a risk reducing agent. 2. If overall lifetime risk for the development of breast cancer is 20% or higher, the patient may qualify for future screening with alternating mammogram and breast MRI. Electronically signed and approved by: Sukumar Velásquez DO
== END | disposition home or self-care (01) ==
LOC: RADMAMWWP 13:44
PROVIDERS: ATTEND Obstetrics & Gynecology
DX: Z12.31 Encounter for screening mammogram for malignant neoplasm of breast (principal); Z80.3 Family history of malignant neoplasm of breast; Z78.0 Asymptomatic menopausal state
CPT/HCPCS: 77063; 77067

== ENCOUNTER → 2024-05-10 | Outpatient (CLI) | payer BC ==
--- NOTE | 2024-05-10 11:39 | US ---
EXAMINATION TYPE: US abdomen limited DATE OF EXAM: 05/10/2024 COMPARISON: NONE CLINICAL INDICATION: Female, 59 years old with history of K29.00 GASTRITIS R10.12 AB PAIN; LUQ pain x 1 month, N/V diarrhea TECHNIQUE: Multiple sonographic images of the left upper quadrant are obtained. FINDINGS: EXAM MEASUREMENTS: Spleen: 10.1 cm Left Kidney: 11.5x5.7x5.4 cm TOURISM RADIO PRESENTER NOTES: 1. Spleen: wnl 2. Left Kidney: wnl Exam limited by habitus and bowel gas. The spleen is within normal limits for size with no focal lesi on identified. Left kidney demonstrates no hydronephrosis, shadowing calculi, or solid mass. IMPRESSION: Unremarkable left upper quadrant ultrasound. [facility], , 05/10/2024 11:36 AM
== END | disposition home or self-care (01) ==
LOC: RADUSWWP 06:56
PROVIDERS: ATTEND Family Medicine
DX: K29.00 Acute gastritis without bleeding (principal)
CPT/HCPCS: 76705

== ENCOUNTER → 2024-06-26 | Outpatient (CLI) | payer BC ==
--- NOTE | 2024-06-27 10:23 | MM ---
Reason for Exam: Screening (asymptomatic). Last mammogram was performed 1 year(s) and 1 month(s) ago. Patient History: Menarche at age 16. First Full-Term at age 26. Postmenopausal. Core Biopsy on the Left side. 09/11/2000, Benign Ultrasound-Guided Core Biopsy on the left side. Paternal grandmother had breast cancer, age 80. Paternal aunt had breast cancer, age 70. Risk Values: Thelma 5 year model risk: 2.0%. NCI Lifetime model risk: 11.5%. Prior Study Comparison: 12/11/2020 Bilateral Diagnostic Mammogram, [facility]. 04/21/2022 Bilateral MG 3D screening mammo w/cad, [facility]. 06/08/2023 Bilateral MG 3D screening mammo w/cad, [facility]. Tissue Density: The breasts are heterogeneously dense, which may obscure small masses. Findings: Analyzed By CAD. Stable small benign-appearing bilateral axillary lymph nodes. Stable 18 mm circumscribed mass in the middle to posterior depth upper outer aspect left breast. There is no suspicious group of microcalcifications or new suspicious mass in either breast. Overall Assessment: Benign, BI-RAD 2 Management: Screening Mammogram of both breasts in 1 year. . Patient should continue monthly self-breast exams. A clinical breast exam by your physician is recommended on an annual basis. This exam should not preclude additional follow-up of suspicious palpable abnormalities. Note on Thelma scores and lifetime risk: 1. A Thelma score greater than 3% is considered moderate risk. If this is the case, consider specialist referral to assess eligibility for a risk reducing agent. 2. If overall lifetime risk for the development of breast cancer is 20% or higher, the patient may qualify for future screening with alternating mammogram and breast MRI. [facility], , 06/27/2024 10:21 AM. Electronically signed and approved by: Nicola Diaz M.D.
== END | disposition home or self-care (01) ==
LOC: RADMAMWWP 16:10
PROVIDERS: ATTEND Family Medicine
DX: Z12.31 Encounter for screening mammogram for malignant neoplasm of breast (principal); Z78.0 Asymptomatic menopausal state; Z80.3 Family history of malignant neoplasm of breast; R92.333 Mammographic heterogeneous density, bilateral breasts
CPT/HCPCS: 77063; 77067